=== PATIENT | male | born 1975 | race Caucasian/White ===

== ENCOUNTER 2021-11-21 20:37 | Emergency (ER) | payer OTHER ==
[~2021-11-21] VITALS: Ht 170.2 cm; Wt 86.4 kg
[2021-11-21] MEDS ORDERED: DULO-113 PO (21:21)
[2021-11-21] MEDS ORDERED: ROSU20TA73 PO (21:21)
[2021-11-21] MEDS ORDERED: LEVO50 PO (21:21)
[2021-11-21] MEDS ORDERED: METH-624 PO (21:21)
[2021-11-21] MEDS ORDERED: AMLO-513 PO (21:21)
[2021-11-21] MEDS ORDERED: POVIDONE-IODINE 10% 15 ML SOLUTION UD TP ONE (22:15)
[2021-11-21] MEDS ORDERED: KETOROLAC TROMETHAMINE 60 MG/2 ML VIAL IM ONE (22:15)
[2021-11-21] MEDS ORDERED: LIDOCAINE 1% 10 ML VIAL PERC ONE (22:15)
[2021-11-21] MEDS ORDERED: METHOCARBAMOL 500 MG TABLET PO ONE (22:15)
[2021-11-21] MEDS ORDERED: PERTUSS(ACELL),DIPH,TET VAC/PF 0.5 ML SYRINGE IM. ONE (22:15)
[2021-11-22 00:19] VITALS: BP 131/70
== END 2021-11-22 01:56 | disposition home or self-care (01) ==
LOC: EMS 20:43
DX: S01.81XA Laceration without foreign body of other part of head, initial encounter (principal); M25.461 Effusion, right knee; M54.2 Cervicalgia; I10 Essential (primary) hypertension; E03.9 Hypothyroidism, unspecified; E78.00 Pure hypercholesterolemia, unspecified; F41.9 Anxiety disorder, unspecified; Z79.899 Other long term (current) drug therapy; W18.39XA Other fall on same level, initial encounter; Y93.89 Activity, other specified; Y92.89 Other specified places as the place of occurrence of the external cause; Y99.8 Other external cause status
CPT/HCPCS: 12011; 29505; 70450; 72125; 73564; 90471; 90715; 96372; 99284; J1885; J3490